=== PATIENT | male | born 1980 | race Caucasian/White ===

== ENCOUNTER 2019-10-31 06:13 | Emergency (ER) | payer OTHER ==
[2019-10-31 06:24] VITALS: BP 169/86; PULSE 87; RESP 20; TEMP 98.6
[2019-10-31] MEDS ORDERED: methylPREDNISolone SOD SUCCI 125 MG/2 ML VIAL IM ONE (06:38)
[2019-10-31] MEDS ORDERED: ORPHENADRINE 30 MG/ML 2 ML VIAL IM STA (06:38)
[2019-10-31] MEDS ORDERED: KETOROLAC 60 MG/2 ML VIAL IM STA (06:38)
[2019-10-31] MEDS ORDERED: MORPHINE SULFATE 4 MG/ML SYRINGE IM STA (06:38)
[2019-10-31] MEDS ORDERED: ACET/COD 300 MG/30 MG STARTER PACK 6 TAB BTL PO STA (06:48)
--- NOTE | 2019-10-31 06:50 | ED ---
Back Pain HPI - General Chief Complaint: Back Pain/Injury Stated Complaint: Back pain Time Seen by Provider: 10/31/19 06:25 Source: patient, RN notes reviewed, old records reviewed Limitations: no limitations - History of Present Illness Initial Comments: Mukund a 38-year-old male with a history of sciatica presents return today with 2 days of right lower back pain with radiation down the right leg. He reports she's had this similar symptoms in the past. Patient reports the pain is worse over the past 2 days. Denies any fall or trauma causing onset of pain. Reports he woke up with the be more severe. Patient states that he has been taking naproxen and Motrin without any relief. Patient denies any fevers or chills, chest pain or shortness breath. Denies saddle anesthesia. - Related Data Previous Rx's Medication Instructions Recorded Cyclobenzaprine [Flexeril] 10 mg PO TID #12 tab 10/31/19 Dexamethasone 0.75 mg PO DAILY #12 tab 10/31/19 Ibuprofen [Motrin] 600 mg PO Q6HR PRN #20 tab 10/31/19 Allergies Allergy/AdvReac Type Severity Reaction Status Date / Time No Known Allergies Allergy Verified 10/31/19 06:23 Review of Systems ROS Statement: Those systems with pertinent positive or pertinent negative responses have been documented in the HPI. ROS Other: All systems not noted in ROS Statement are negative. Past Medical History Past Medical History: No Reported History History of Any Multi-Drug Resistant Organisms: None Reported Past Surgical History: No Surgical Hx Reported Past Psychological History: No Psychological Hx Reported Smoking Status: Current every day smoker Past Alcohol Use History: Occasional Past Drug Use History: None Reported General Exam - General Exam Comments Initial Comments: 38 -year-old male. Patient appears in moderate discomfort. Limitations: no limitations General appearance: alert, in no apparent distress Head exam: Present: atraumatic, normocephalic, normal inspection Eye exam: Present: normal appearance, PERRL, EOMI. Absent: scleral icterus, conjunctival injection, periorbital swelling ENT exam: Present: normal exam, mucous membranes moist Neck exam: Present: normal inspection. Absent: tenderness, meningismus, lymphadenopathy Respiratory exam: Present: normal lung sounds bilaterally. Absent: respiratory distress, wheezes, rales, rhonchi, stridor Cardiovascular Exam: Present: regular rate, normal rhythm, normal heart sounds. Absent: systolic murmur, diastolic murmur, rubs, gallop, clicks GI/Abdominal exam: Present: soft, normal bowel sounds. Absent: distended, tenderness, guarding, rebound, rigid Extremities exam: Present: normal inspection, full ROM, normal capillary refill. Absent: tenderness, pedal edema, joint swelling, calf tenderness Back exam: Present: normal inspection, other (She does tenderness over the right sciatic notch evidence of muscle spasm. Normal pulses in bilateral lower extremities and full range motion of the leg.) Neurological exam: Present: alert, oriented X3, CN II-XII intact Psychiatric exam: Present: normal affect, normal mood Skin exam: Present: warm, dry, intact, normal color. Absent: rash Course Vital Signs 10/31/19 06:18 Temperature 98.6 F Pulse Rate 87 Respiratory 20 Rate Blood Pressure 169/86 O2 Sat by Pulse 99 Oximetry Medical Decision Making - Medical Decision Making 38-year-old female presents emergency room today for evaluation for concern for back pain with radiation down the right leg. Symptoms for the past 2 days. At this time Patient presented taking approximately. A clinical exam Patient is unable to sit for long period time without pain and pressure on the sciatic nerve. Tender over the right sciatic notch. He has normal pulses distally and full range of motion of the leg. He does have some no trauma or red flag symptoms. Discussed a further imaging is necessary at this time. Patient advised to be discharged with a rash is anti-inflammatory medication. I discussed appropriate follow-up with PCP and orthopedic referral. Disposition Clinical Impression: Sciatica, right side Disposition: HOME SELF-CARE Condition: Good Instructions (If sedation given, give patient instructions): Sciatica (ED) Additional Instructions: Please use medication as discussed. Please follow up with family doctor if symptoms have not improved over the next two days. Please return to the emergen cy room if your symptoms increase or worsen or for any other concerns. Prescriptions: Dexamethasone 0.75 mg PO DAILY #12 tab Cyclobenzaprine [Flexeril] 10 mg PO TID #12 tab Ibuprofen [Motrin] 600 mg PO Q6HR PRN #20 tab PRN Reason: Pain Is patient prescribed a controlled substance at d/c from ED?: No Referrals: None,Stated [Primary Care Provider] - 1-2 days Noman Martinez MD [REFERRING] - 1-2 days Rakesh Fuentes DO [Doctor of Osteopathic Medicine] - 1-2 days Debby Abrams MD [STAFF PHYSICIAN] - 1-2 days Time of Disposition: 06:46
== END 2019-10-31 07:42 | disposition home or self-care (01) ==
LOC: EC 06:13
DX: M54.41 Lumbago with sciatica, right side (principal); F17.200 Nicotine dependence, unspecified, uncomplicated
CPT/HCPCS: 99283; 96372 ×4; J2270; J2360; J2930; J1885

== ENCOUNTER 2021-01-01 08:09 | Emergency (ER) | payer OTHER ==
[2021-01-01 08:13] VITALS: TEMP 97.8
[2021-01-01] MEDS ORDERED: KETOROLAC 15 MG/ML 1 ML VIAL IVP STA (08:54)
[2021-01-01] MEDS ORDERED: cefTRIAXone IN SWFI 1,000 MG/10 ML SYRINGE IVP STA (08:54)
[2021-01-01 09:10] LABS: Basophils # (A) 0.1 k/uL (0-0.2); Basophils % (A) 1 %; Eosinophils # (A) 0.2 k/uL (0-0.7); Eosinophils % (A) 2 %; HCT 47.2 % (39.0-53.0); HGB 16.3 gm/dL (13.0-17.5); Lymphocytes # (A) 1.7 k/uL (1.0-4.8); Lymphocytes % (A) 17 %; MCH 31.8 pg (25.0-35.0); MCHC 34.5 g/dL (31.0-37.0); MCV 92.2 fL (80.0-100.0); Mean Platelet Volume 6.9; Monocytes # (A) 0.6 k/uL (0-1.0); Monocytes % (A) 6 %; Neutrophils # (A) 7.3 k/uL (1.3-7.7); Neutrophils % (A) 73 %; Platelet Count 334 k/uL (150-450); RBC 5.12 m/uL (4.30-5.90); RDW 12.7 % (11.5-15.5)
[2021-01-01 09:24] LABS: ALT 15 U/L (4-49); AST 21 U/L (17-59); African American GFR (CKD) >90 (>60 ml/min/1.73 sqM); Albumin 4.2 g/dL (3.5-5.0); Alkaline Phosphatase 83 U/L (38-126); Anion Gap 9 mmol/L; Blood Urea Nitrogen 9 mg/dL (9-20); C Reactive Protein 7.2 mg/dL (<1.0); Calcium 9.2 mg/dL (8.4-10.2); Carbon Dioxide 28 mmol/L (22-30); Chloride 99 mmol/L (98-107); Glucose 141 mg/dL (74-99); Non-African American GFR(CKD) >90 (>60 ml/min/1.73 sqM); Potassium 4.1 mmol/L (3.5-5.1); Sodium 136 mmol/L (137-145); Total Bilirubin 0.8 mg/dL (0.2-1.3); Total Protein 7.1 g/dL (6.3-8.2)
--- NOTE | 2021-01-01 09:36 | ED ---
Skin/Abscess/FB HPI - General Chief complaint: Skin/Abscess/Foreign Body Stated complaint: facial swelling Time Seen by Provider: 01/01/21 08:15 Source: patient Mode of arrival: ambulatory Limitations: no limitations - History of Present Illness Initial comments: Patient is a 40-year-old male presenting to the emergency Department with complaints of an infection on the left side of his face over the past week. He states he noticed what he thought was an ingrown hair in the left side of his mustache, was keeping an eye on it the last week and then over the past 4 days, he started noticing increase in redness, swelling and pain along the left side of his face. He states the last 4 days has been unable to open his left eye secondary to the swelling. He does think he's had some low-grade temperatures at home over the past 2 days. He does admit to some body aches, no abdominal pain, no nausea or vomiting. He denies any chest pain or shortness of breath. He states he's never had an infection like this before. He denies any dental pain. He does not take any medications. He has no further complaints at this time. His vital signs are stable upon arrival. - Related Data Previous Rx's Medication Instructions Recorded Cephalexin [Keflex] 500 mg PO Q6HR 7 Days #28 cap 01/01/21 Sulfamethox-Tmp 800-160Mg [Bactrim 1 each PO Q12HR 7 Days #14 tab 01/01/21 Ds] Allergies Allergy/AdvReac Type Severity Reaction Status Date / Time No Known Allergies Allergy Verified 01/01/21 09:14 Review of Systems ROS Statement: Those systems with pertinent positive or pertinent negative responses have been documented in the HPI. ROS Other: All systems not noted in ROS Statement are negative. Past Medical History Past Medical History: No Reported History History of Any Multi-Drug Resistant Organisms: None Reported Past Surgical History: No Surgical Hx Reported Past Psychological History: No Psychological Hx Reported Smoking Status: Current every day smoker Past Alcohol Use History: Occasional Past Drug Use History: None Reported General Exam - General Exam Comments Initial Comments: GENERAL: Patient is well-developed and well-nourished. Patient is nontoxic and in mild distress. HEAD: Atraumatic, normocephalic. EYES: Patient is unable to open the left eye, I can hardly open the eye to examine the left eye secondary to swelling. He does have yellowish drainage coming from the left eye. His right eye is slightly swollen as well, right Pupil equal round and reactive to light, Right extraocular movements intact, sclera anicteric, conjunctiva are normal. ENT: TMs normal, nares patent, oropharynx clear without exudates. Moist mucous membranes. Patient has moderate facial swelling on the left side of the face, infection present. NECK: Normal range of motion, supple without lymphadenopathy or JVD. LUNGS: Unlabored respirations. Breath sounds clear to auscultation bilaterally and equal. No wheezes rales or rhonchi. HEART: Regular rate and rhythm without murmurs, rubs or gallops. ABDOMEN: Soft, nontender, normoactive bowel sounds. No guarding, no rebound. No masses appreciated. : Deferred MUSCULOSKELETAL: Normal extremities with adequate strength and normal range of motion, no pitting or edema. No clubbing or cyanosis. NEUROLOGICAL: Patient is alert and oriented x 3. SKIN: Warm, Dry, normal turgor. Patient has open papule on the left cheek near his mustache that is draining yellow thick discharge, he has spreading erythema up the side of his left face, severe swelling of his left eye, is unable to open, swelling going to the right eye as well. Limitations: no limitations Course Vital Signs 01/01/21 08:10 Temperature 97.8 F Pulse Rate 101 H Respiratory 16 Rate Blood Pressure 129/78 O2 Sat by Pulse 99 Oximetry Medical Decision Making - Medical Decision Making Patient is a 40-year-old male presenting with cellulitis of the left side of his face over the past week. He has an open papule that is draining thick yellow drainage on the left side of his mustache, severe swelling up to his left eye and going to the right eye as well. His vital signs are stable here. Labs are showing a normal white count at 10.0, CRP is 7.2. CT of the sinuses shows marked swelling and subcutaneous fat straining of the left face, cheek, periorbital soft tissue, there is a rim enhancing fluid collection in the left premaxillary soft tissue compatible with a draining abscess. Patient was given some Toradol for pain relief and a gram of Rocephin. I recommended patient staying for IV antibiotics and surgical consult however patient refuses, he is leaving AMA. I discussed with him that can arise from a worsening facial cellulitis, patient continues to want to leave AMA. I will start him on Bactrim and Keflex and urged him to come back with strict return parameters. He is agreeable to this. Case discussed with Dr. Rea. - Lab Data Result diagrams: 01/01/21 08:58 01/01/21 08:58 Lab Results 01/01/21 01/01/21 01/01/21 Range/Units 08:58 08:58 08:58 WBC 10.0 (3.8-10.6) k/uL RBC 5.12 (4.30-5.90) m/uL Hgb 16.3 (13.0-17.5) gm/dL Hct 47.2 (39.0-53.0) % MCV 92.2 (80.0-100.0) fL MCH 31.8 (25.0-35.0) pg MCHC 34.5 (31.0-37.0) g/dL RDW 12.7 (11.5-15.5) % Plt Count 334 (150-450) k/uL MPV 6.9 Neutrophils % 73 % Lymphocytes % 17 % Monocytes % 6 % Eosinophils % 2 % Basophils % 1 % Neutrophils # 7.3 (1.3-7.7) k/uL Lymphocytes # 1.7 (1.0-4.8) k/uL Monocytes # 0.6 (0-1.0) k/uL Eosinophils # 0.2 (0-0.7) k/uL Basophils # 0.1 (0-0.2) k/uL Sodium 136 L (137-145) mmol/L Potassium 4.1 (3.5-5.1) mmol/L Chloride 99 (98-107) mmol/L Carbon Dioxide 28 (22-30) mmol/L Anion Gap 9 mmol/L BUN 9 (9-20) mg/dL Creatinine 0.73 (0.66-1.25) mg/dL Est GFR (CKD-EPI)AfAm >90 (>60 ml/min/1.73 sqM) Est GFR (CKD-EPI)NonAf >90 (>60 ml/min/1.73 sqM) Glucose 141 H (74-99) mg/dL Plasma Lactic Acid Yuri 1.3 (0.7-2.0) mmol/L Calcium 9.2 (8.4-10.2) mg/dL Total Bilirubin 0.8 (0.2-1.3) mg/dL AST 21 (17-59) U/L ALT 15 (4-49) U/L Alkaline Phosphatase 83 (38-126) U/L C-Reactive Protein 7.2 H (<1.0) mg/dL Total Protein 7.1 (6.3-8.2) g/dL Albumin 4.2 (3.5-5.0) g/dL Disposition Clinical Impression: Facial cellulitis, Facial abscess Disposition: Left Against Medical Advice Condition: Fair Additional Instructions: Please return to the Emergency Department if symptoms worsen or any other concerns. Take both antibiotics as prescribed, apply ice to the area, ibuprofen for any discomfort. Prescriptions: Sulfamethox-Tmp 800-160Mg [Bactrim Ds] 1 each PO Q12HR 7 Days #14 tab Cephalexin [Keflex] 500 mg PO Q6HR 7 Days #28 cap Is patient prescribed a controlled substance at d/c from ED?: No Referrals: None,Stated [Primary Care Provider] - 1-2 days Time of Disposition: 10:23
--- NOTE | 2021-01-01 10:09 | CT ---
EXAMINATION TYPE: CT sinus w con DATE OF EXAM: 01/01/2021 COMPARISON: None HISTORY: Facial cellulitis, pain CT DLP: 419.5 mGycm Automated exposure control for dose reduction was used. CONTRAST: CT scan of the facial bones is performed with IV Contrast, patient injected with 100 ml mL of Isovue 300. TECHNIQUE: CT scan of the sinuses is performed without contrast, axial images are obtained, coronal r eformatted images are also reviewed. FINDINGS: Marked swelling and subcutaneous fat stranding of the left base, cheek and periorbital soft tissue. T here is a rim-enhancing fluid collection in the left premaxillary soft tissue that extends to the sk in surface. Complete opacification of the surgery sinus. Soft tissue thickening maxillary sinus setting paranasa l sinuses and ethmoid air cells are well-developed and pneumatized. Paranasal sinuses including the f rontal, ethmoid, sphenoid, and maxillary sinuses bilaterally are well-aerated without abnormal opacif ication. The ostiomeatal complex is occluded on the left patent on the right side. Visualized portion of mastoid air cells show no abnormal opacification. The globes are intact bilat erally. Extraocular muscles and orbital fat are unremarkable. The visualized intracranial compartment is unremarkable. IMPRESSION: Marked swelling and subcutaneous fat stranding of the left face, cheek and periorbital so ft tissue. There is a rim-enhancing fluid collection in the left premaxillary soft tissue that extend s to the skin surface compatible with a draining abscess. Correlate clinically.
[2021-01-01 10:30] VITALS: BP 107/69; PULSE 73; RESP 18
[2021-01-01 10:33] LABS: Erythrocyte Sedimentation Rate 26 mm/hr (0-15)
== END 2021-01-01 10:30 | disposition left against medical advice (07) ==
LOC: EC 08:09
DX: L03.211 Cellulitis of face (principal); L02.01 Cutaneous abscess of face; F17.200 Nicotine dependence, unspecified, uncomplicated
CPT/HCPCS: 36415; 80053; 85652; 83605; 85025; 86140; 87040; 87070; 87205; 70487; 99284; 96374; 96375; J0696; J1885; Q9967